=== PATIENT | male | born 2000 | race Caucasian/White ===

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

== ENCOUNTER 2021-10-12 17:12 | Emergency (ER) | payer OTHER, SELFPAY ==
[2021-10-12 19:14] VITALS: BP 124/61; PULSE 88; RESP 18; TEMP 36.7; O2SAT 97; BMI 32.7
[2021-10-12 21:21] VITALS: BP 130/79; PULSE 98; RESP 18; TEMP 36.8; O2SAT 100
--- NOTE | 2021-10-12 21:21 | ED_ITS ---
HPI - Wound/Laceration General Chief Complaint: Wound/Laceration Stated Complaint: Infected Toenail R & L Feet Time Seen by Provider: 10/12/21 21:20 Source: patient Mode of arrival: ambulatory Limitations: no limitations History of Present Illness HPI narrative: 20-year-old male here with ingrown toenails to the bilateral great toes which he has had for months. Patient tells me he called his primary care doctor was referred into the emergency room for further evaluation. Patient has not been on antibiotics he has not been doing Epson salt soaks at home. Patient also reports he would like some sutures removed from his left forearm which replaced in November of 2020. He tells me at that time he had a laceration requiring 3 sutures placed. He did not follow up with his primary care for removal Related Data Previous Rx's Medication Instructions Recorded cephalexin 500 mg capsule 500 mg PO BID #14 caps 10/12/21 Allergies Allergy/AdvReac Type Severity Reaction Status Date / Time No Known Allergies Allergy Verified 10/12/21 19:18 Review of Systems Review of Systems: Yes all other systems are reviewed and are negative Constitutional: Constitutional: Reports no additional constitutional complaints, Denies body ache(s), Denies chills, Denies fever(s), Denies headache(s) and Denies weakness Eyes: Eyes: Reports no additional eye complaints and Denies change in vision ENT: Reports system reviewed and no additional complaints, except as documented, Denies dizziness, Denies headache(s), Denies nasal congestion, Denies nasal discharge and Denies neck pain Cardiovascular: Cardiovascular: Reports no additional cardiovascular compl aints, Denies chest pain, Denies leg edema and Denies dyspnea Respiratory: Respiratory: Reports no additional respiratory complaints, Denies cough and Denies dyspnea Gastrointestinal: Gastrointestinal: Reports no additional gastrointestinal complaints, Denies abdominal pain, Denies diarrhea, Denies nausea and Denies vomiting Genitourinary: Genitourinary: Denies urinary incontinence Musculoskeletal: Musculoskeletal: Reports no additional musculoskeletal complaints, Denies back pain, Denies arthralgias, Denies joint swelling, Denies neck pain, Denies numbness and Denies tingling Integumentary/Breasts: Skin/Breast: Reports system reviewed and no additional complaints, except as docu, Reports swelling, Reports erythema and Denies rash Neurologic: Reports system reviewed and no additional complaints, except as documented, Denies Abnormal speech present, Denies dizziness, Denies headache(s), Denies numbness, Denies tingling and Denies weakness PMFSH Past Medical History Attestation statement: The following information was validated with the patient. Source: old records reviewed and nursing notes reviewed Social History Social History Advance Directives: No Advance Directives Information Provided: No Physical Exam Vital Signs: Vital Signs: Last Vital Signs Temp 98.2 F 10/12/21 21:21 Pulse 98 10/12/21 21:21 Resp 18 10/12/21 21:21 BP 130/79 10/12/21 21:21 Pulse Ox 100 10/12/21 21:21 O2 Del Method 10/12/21 21:21 BMI result Body Mass Index 32.7 Const: General: cooperative, healthy appearing, comfortable and no acute distress Orientation/consciousness: patient oriented x3 Limitations: no limitations HEENT: Head: Yes normal to inspection Ears: hearing grossly normal bilaterally General nose exam: Normal external nose present Face and sinus: Yes normal facial exam Mouth: Normal oral and palatal mucosa present Throat: Yes posterior oropharynx normal Eyes: General: appearance normal, both eyes and all related structures Pupils: Equal, round and reactive pupils present Neck: Neck: Yes normal visual inspection Chest: Chest palpation & inspection: normal inspection of the chest Resp: Effort & Inspection: normal respiratory effort Auscultation: clear to auscultation bilaterally Cardio: Rate: regular rate Rhythm: regular rhythm Peripheral pulses: Peripheral pulses 2+ throughout GI: Inspection: Yes normal to inspection Palpation (GI): Soft to palpation and nontender Auscultation: normal bowel sounds Back/Spine/Pelvis: Thoracic/Lumbar Spine: thoracic and lumbar spine normal to inspection Skin: General skin exam: no rashes or lesions noted Neuro: General: patient oriented x3, no focal motor deficits and normal sensation to monofilament Cranial nerves: Yes Equal, round and reactive pupils present Cognition (Neuro): normal cognition Speech: No Abnormal speech present Gait exam (Neuro): Normal gait present Motor exam (neuro): 5/5 motor strength present throughout Extrem: General: Yes normal to inspection Elbow/forearm/wrist images: 1. 1 suture present. Unable to visualize additional sutures Ankle/foot/toe images: 1. ingrown with local erythema, tenderness, swelling over lateral nailbed 2. ingrown with local swelling. no erythema or tenderness Course Course Course Narrative: see procedure note. Patient placed on antibiotics and recommended to do Epson salt soaks and follow-up with his primary care doctor. This has been a recurrent problem with him so we did discuss that he should ask for podiatry r ji. MDM - Wound/Laceration MDM Narrative Medical decision making narrative: 20-year-old male here with bilateral ingrown toenails. Also requesting suture removal from a left forearm laceration that replaced in November of 2020. Medical Records Attestation: I reviewed the patient's medical records. Lab Data Attestation: I reviewed the patient's lab results. Procedures Procedure Narrative Procedure Narrative: One sutures removed from left forearm. The site was cleansed of Betadine topical dressing was applied the right great toe had a small ingrown toenail on the medial aspect that was removed manually after cleansing the site with Betadine. Left great toe had a ingrown toenail with local redness, swelling and tenderness and the nail was partially excised with removal of the ingrown toenail after digital block was done. The site was cleansed with Betadine prior and postprocedure. 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
[2021-10-12] MEDS: Lidocaine HCl 1 % MPF 2 ML VIAL INFILTRATI ×3 (22:33)
--- NOTE | 2021-10-12 22:42 | PC.NURSE ---
pat's mother at bedside at time of discharge. discharge packet provided to patient. patient verbalized understanding of discharge plan
== END 2021-10-12 22:43 | disposition home or self-care (01) ==
PROVIDERS: Emergency Provider Internal Medicine; PCP Internal Medicine
DX: Z48.02 Encounter for removal of sutures (principal)
CPT/HCPCS: 99283; 99284

== ENCOUNTER 2022-02-26 21:22 | Emergency (ER) | payer OTHER, SELFPAY ==
[2022-02-26 21:31] VITALS: BP 120/77; BP 135/63; PULSE 79; PULSE 98; RESP 16; TEMP 36.6; O2SAT 100; O2SAT 99; BMI 32.8
[2022-02-26 22:31] LABS: COVID-19 Test Negative (Negative); IDNOW Serial# 6674DD1D
[2022-02-26 22:35] LABS: IDNOW Serial# 55D5AD1C; Influenza A Negative (Negative); Influenza B2 Negative (Negative)
--- NOTE | 2022-02-26 23:16 | ED_ITS ---
HPI - Extremity Problem General Chief complaint: Extremity Problem Stated complaint: ingrown Toe Nail Time Seen by Provider: 02/26/22 23:05 Source: patient Mode of arrival: ambulatory Limitations: no limitations History of Present Illness HPI Narrative: 21-year-old male presents via EMS for bilateral ingrown toenails. Complaint: extremity pain Onset (ago): week(s) Pain Consistency: constant Location: left and right Severity scale (1-10): 10 Quality: aching Radiation: none Relieving factors: nothing Exacerbating factors: weight bearing, walking and palpation Associated symptoms: denies other symptoms Context: recent travel Related Data Previous Rx's Medication Instructions Recorded cephalexin 500 mg capsule 500 mg PO BID #14 caps 10/12/21 amoxicillin 875 mg-potassium 1 tab PO Q12H 10 days #20 tabs 02/27/22 clavulanate 125 mg tablet Allergies Allergy/AdvReac Type Severity Reaction Status Date / Time No Known Allergies Allergy Verified 02/26/22 21:36 Review of Systems Review of Systems: Constitutional: No Fever, No Chills Cardiovascular: No Chest Pain, No SOB Respiratory: No Cough, No Dyspnea Gastrointestinal: No Nausea, No Vomiting, No Diarrhea, No abdominal Pain Musculoskeletal: positive bilateral great toe pain, No Myalgias, No Joint Swelling Skin: No Skin lacerations, No rash Neuro: No Weakness, No Numbness, No Paresthesias Yes all other systems are reviewed and are negative [facility] Past Medical History Attestation statement: The following information was validated with the patient. Source: old records reviewed Social History Social History Advance Directives: No Advance Directives Information Provided: No Physical Exam Vital Signs: Vital Signs: Last Vital Signs Temp 98.6 F 02/27/22 00:02 Pulse 73 02/27/22 00:02 Resp 16 02/27/22 00:02 BP 144/75 H 02/27/22 00:02 Pulse Ox 97 02/27/22 00:02 O2 Del Method 02/27/22 00:02 BMI result Body Mass Index 32.8 Appearance: Alert. Oriented X3. No acute distress. Eyes: Pupils equal, round and reactive to light. Neck: Normal inspection. Neck supple. CVS: Normal heart rate and rhythm. Pulses normal. Respiratory: No respiratory distress. Breath sounds normal. Skin: Skin warm and dry. Normal skin color. Normal skin turgor. Extremities: Bilateral ingrown great toenails Neuro: No motor deficit. No sensory deficit. Cranial nerves 2-12 intact Course Course Course Narrative: 21-year-old male presents via EMS for bilateral ingrown toenails. Patient is visiting from [place], and is returning in 2 days. States that he has been taking antibiotics with his toenails however things have worsened. He was post follow-up with a religious education teacher to have the toenails removed however he missed his appointment. Right great toenail is ingrown on the medial aspect, left great toenail is ingrown bilaterally. Plan of care is partial removal of the right great toenail, and full removal of the left great toe nail. Patient verbalized understanding of and agrees to plan of care. Patient tolerated procedure well. Digital blocks to both great toes successful. Xeroform dressing placed. Patient understands signs symptoms indicating infection, and wound care. Patient will follow-up with the religious education teacher once he returns to [place] in 2 days. Patient verbalized understanding of and agrees to plan of care discharge home. Verbalizes understanding of signs and symptoms indicating need for emergent intervention. Medications Administered Discontinued Medications Generic Name Dose Route Start Last Admin Trade Name Freq PRN Reason Stop Dose Admin Amoxicillin/Clavulanate Potassium 875 mg 02/27/22 00:11 02/27/22 00:38 Amoxicillin/Potassium Clav 875 Mg Tablet PO 02/27/22 00:12 875 mg ONCE ONE Administration Diphtheria/Tetanus/Acell Pertussis 0.5 ml 02/26/22 23:16 02/27/22 00:00 Diphth,Pertus(Acell),Tet Adult 0.5 Ml Syringe IM 02/26/22 23:17 0.5 ml .ONCE ONE Administration Lidocaine HCl 10 ml 02/26/22 23:16 02/26/22 23:59 Lidocaine Hcl 2 % Mpf 5 Ml Vial SUBCUT 02/26/22 23:17 10 ml ONCE ONE Administration Medical Decision Making Differential Diagnosis Differential Diagnoses: The differential diagnosis associated with the presentation includes Bilateral ingrown toenails Lab Data MDM Lab Attestation statement: I reviewed the patient's lab results. Labs: Lab Results 02/26/22 02/26/22 Range/Units 22:05 22:05 COVID-19 (RASHAAD) Negative (Negative) COVID-19 Clin Com See Note Influenza Type A (ADILENE) Negative (Negative) Influenza Type B (ADILENE) Negative (Negative) Influenza A & B Note See Note Procedures Nerve Block Nerve Block 1: Time out performed: Yes Local Anesthetic: lidocaine 2% Amount of anesthesia used (mL): 5 Side: left Nerve Blocks: digital Procedure Successful: Yes Patient Tolerated Procedure: well and no complications Complications: none Nerve Block 2: Time out performed: Yes Local Anesthetic: lidocaine 2% Amount of anesthesia used (mL): 5 Side: right Nerve Blocks: digital Procedure Successful: Yes Patient Tolerated Procedure: well and no complications Complications: none Discharge Plan Discharge Clinical Impression: Ingrowing left great toenail, Ingrowing right great toenail Patient Disposition: Home, Self-Care Instructions: Ingrown Nail (ED), Nail Removal (ED), Partial Nail Avulsion for Ingrown Nail (DC) Additional Instructions: You were evaluated for bilateral ingrown toenails. We removed the full nail to the left foot, and a partial to the right foot. Please use dressings as directed. Elevate your feet. You can expect bleeding from the site for the next few days. Take Augmentin 875 mg every 12 hours for the next 10 days. Alternate Tylenol 650 mg every 6 hours and Motrin 600 mg every 6 hours as needed for pain and fever management. Consider taking these medications 3 hours apart so you have pain and fever management every 3 hours. Write down what time you take these medications to prevent accidental overdose. You must follow-up with religious education teacher when you return to your hometown in [place]. Thank you for choosing this emergency department for evaluation. Please follow-up with primary care physician as needed. Return to the emergency department for any new, concerning, or worsening symptoms. Prescriptions: New amoxicillin-pot clavulanate 875-125 mg tablet 1 tab PO Q12H 10 Days Qty: 20 0RF No Action cephalexin 500 mg capsule 500 mg PO BID Qty: 14 0RF Interventions: ED Discharge Assessment Last Done: 02/27/22 00:41 Discharge Date/Time: 02/27/22 00:42
[2022-02-26] MEDS: Lidocaine HCl 2 % MPF 5 ML VIAL 10 ML SUBCUT (23:59)
[2022-02-27] MEDS: Diphth,Pertus(ACell),Tet Adult 0.5 ML SYRINGE IM
[2022-02-27 00:02] VITALS: BP 144/75; PULSE 73; RESP 16; TEMP 37; O2SAT 97
[2022-02-27] MEDS: Amoxicillin/Potassium Clav 875 MG TABLET PO (00:38)
== END 2022-02-27 00:42 | disposition home or self-care (01) ==
PROVIDERS: Emergency Provider Emergency Medicine; PCP Internal Medicine
DX: L60.0 Ingrowing nail (principal); Z23 Encounter for immunization
CPT/HCPCS: 11730; 11732; 87502; 87635; 90471; 90715; 99283; 99284

== ENCOUNTER 2022-12-05 19:55 | Emergency (ER) | payer OTHER, SELFPAY ==
--- NOTE | ~2022-12-05 | XR_ITS ---
EXAMINATION: XR KNEE, RIGHT CLINICAL INFORMATION: Knee pain when running. COMPARISON: None available. TECHNIQUE: AP, lateral, and both oblique views of the right knee. FINDINGS: Bony alignment and mineralization are normal. The lateral, medial and patellofemoral joint space compartments are well-maintained. No fracture or dislocation is seen. A benign, sclerotic bone island is seen of the lateral tibial plateau. There is a small joint effusion. No foreign body is seen. XR/XR knee RT 4V IMPRESSION: 1. No right knee fracture, dislocation or unusual degenerative change is seen. 2. There is a small right knee joint effusion.
[2022-12-05 20:03] VITALS: BP 134/66; PULSE 91; RESP 14; TEMP 37.2; O2SAT 96; BMI 25.8
--- NOTE | 2022-12-05 20:13 | ED_ITS ---
HPI - General Adult General Chief complaint: Extremity Injury, Lower Stated complaint: Pain in right knee Time Seen by Provider: 12/05/22 21:31 Source: patient and RN notes reviewed Mode of arrival: ambulatory Limitations: no limitations History of Present Illness HPI narrative: This is a 22-year-old male, with no known past medical history, presenting to the emergency department today with complaints of right knee pain since yesterday. Patient reports that he has increased his running over the last 2 weeks and states that while he was jogging yesterday he developed right knee pain. He denies any twisting or falls. He is able to bear weight however reports increased pain with this. Denies any previous injury or trauma to his right knee. Denies any fevers or chills. Denies taking any medications at home to treat his current symptoms. No other complaints or concerns at this time. MD complaint: Right knee pain Onset (ago): day(s) Location: lower extremity Radiation: non-radiation Severity: moderate Quality: aching Pain Consistency: constant Relieving factors: immobilization Exacerbating factors: movement Associated symptoms: denies other symptoms Treatments prior to arrival: none Related Data Previous Rx's Medication Instructions Recorded cephalexin 500 mg capsule 500 mg PO BID #14 caps 10/12/21 amoxicillin 875 mg-potassium 1 tab PO Q12H 10 days #20 tabs 02/27/22 clavulanate 125 mg tablet ibuprofen 600 mg tablet 600 mg PO Q6H PRN pain #30 tabs 12/05/22 Allergies Allergy/AdvReac Type Severity Reaction Status Date / Time No Known Allergies Allergy Verified 02/26/22 21:36 Review of Systems Review of Systems: Yes all other systems are reviewed and are negative [facility] Social History Social History Advance Directives: No Advance Directives Information Provided: No Physical Exam ED Vital Signs: Vital Signs - 24 hr 12/05/22 20:03 Temperature 98.9 F Pulse Rate 91 Respiratory Rate 14 Blood Pressure 134/66 Pulse Oximetry 96 Oxygen Delivery Method Room Air BMI result Body Mass Index 25.8 Const Other: General: Awake, alert, and oriented X3. No acute distress. HEENT: Normal inspection CVS: Normal heart rate and rhythm. Pulses normal. Respiratory: No respiratory distress Skin: Warm, dry, no rashes noted to exposed skin. Normal skin color. Normal skin turgor. Extremities: Right knee: no gross bony deformities, swelling. Patient has tenderness palpation along the right lateral joint line. Full range of motion. Negative anterior posterior drawer test, no pain with varus and valgus strain. Distal sensation circulation intact. No calf tenderness Neuro: Oriented X 3. No motor deficit. No sensory deficit. Course Course Course Narrative: RME: Right knee pain after running. Denies hearing pop in knee. denies blunt trauma or swelling. denies redness. xray ordered. Medical Decision Making Medical Decision Making MDM Narrative: 22-year-old male presenting to the emergency department with complaints of right knee pain after jogging. on arrival, vital signs within normal limits. Patient has tenderness palpation along the right lateral joint line, with full range of motion, negative anterior posterior drawer, no pain with varus and valgus strain. Differential diagnoses include internal derangement of ligament, patellar fracture - less likely, patellar dislocation - unlikely, knee strain, Patellofemoral syndrome. X-ray of the right knee was obtained revealing small right knee joint effusion. I discussed this with patient. Advised R.I.C.E., and given orthopedic referral if symptoms persist. Also given prescription for ibuprofen. Given return precautions, patient understands and agrees with plan. Patient stable for discharge. Differential Diagnosis Differential Diagnoses: The differential diagnosis associated with the presenta tion includes See above Independent Interpretation I performed an independent interpretation of an: Plain X-Ray Interpretation: EXAMINATION: XR KNEE, RIGHT CLINICAL INFORMATION: Knee pain when running. COMPARISON: None available. TECHNIQUE: AP, lateral, and both oblique views of the right knee. FINDINGS: Bony alignment and mineralization are normal. The lateral, medial and patellofemoral joint space compartments are well-maintained. No fracture or dislocation is seen. A benign, sclerotic bone island is seen of the lateral tibial plateau. There is a small joint effusion. No foreign body is seen. XR/XR knee RT 4V IMPRESSION: 1. No right knee fracture, dislocation or unusual degenerative change is seen. 2. There is a small right knee joint effusion. Dictated By: Murray Maradiaga MD Discharge Plan Discharge Clinical Impression: Knee pain, right Patient Disposition: Home, Self-Care Instructions: Knee Pain (ED) Additional Instructions: You came to the emergency department today for evaluation of right knee pain. Your x-rays did not show any fractures. X-rays only show bones, they do not show any injury to ligaments. Please rest, ice, use Barrie wrap and elevate your right leg. You may take ibuprofen as needed for pain and symptoms. If any new or worsening symptoms occur please return for re-evaluation. You continue to have right knee pain despite resting, icing, using Barrie wrap, you may follow-up with Orthopedics, call to make an appointment. Prescriptions: New ibuprofen 600 mg tablet 600 mg PO Q6H PRN (Reason: pain) Qty: 30 0RF No Action cephalexin 500 mg capsule 500 mg PO BID Qty: 14 0RF amoxicillin-pot clavulanate 875-125 mg tablet 1 tab PO Q12H 10 Days Qty: 20 0RF Referrals: [facility] [Provider Group] Interventions: ED Discharge Assessment Last Done: 12/05/22 22:12 Discharge Date/Time: 12/05/22 22:12
== END 2022-12-05 22:12 | disposition home or self-care (01) ==
PROVIDERS: Emergency Provider Emergency Medicine
DX: M25.561 Pain in right knee (principal); Z79.899 Other long term (current) drug therapy
CPT/HCPCS: 73564; 99282; 99283

== ENCOUNTER 2022-12-15 07:59 | Outpatient (AMB) | payer OTHER, SELFPAY ==
--- NOTE | 2022-12-15 08:01 | MHC.OFFVIS ---
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 Patient reports about to weeks ago pain at the lateral aspect of knee while jogging. States with any jogging after 10-15 minutes he experiences pain. He is going to boot camp on 12/21/22 in [facility]. He denies any locking or giving way. He has gotten fairly good relief from rest over the last few days. Allergies No Known Allergies Allergy (Verified 02/26/22 21:36) Medication List - Last Reconciled 12/15/22 by John Carey MD amoxicillin-pot clavulanate 875-125 mg 1 tab PO Q12H 10 days cephalexin 500 mg PO BID ibuprofen 600 mg PO Q6H PRN PFSH Social History (Updated 12/15/22 @ 08:03 by Brittani White [facility]) Patient Tobacco Use Status: Never used Tobacco Current occupational status: unemployed Physical Exam Vital Signs: BMI result Body Mass Index 25.8 Const Other: Well-nourished well-developed very friendly male awake alert and oriented x3 in no acute distress Extrem Other: Bilateral lower extremity examination shows good capillary refill, no skin lesions noted, normal sensation light touch Right knee examination shows a minimal effusion, no crepitus with range of motion, no joint line tenderness, negative Joe's test, negative Alisa's test, mild tenderness over his iliotibial band Results Reviewed Results Reviewed: X-rays of the patient's right knee show no bony or joint abnormality Assessment & Plan Assessment & Plan (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 Mayers presents with intermittent discomfort along the lateral aspect of his right knee most likely due to iliotibial band syndrome. Activity modifications and stretching exercises were discussed at length with the patient. I also gave him a prescription for a Medrol Dosepak to help with the inflammation. He will follow up with me on an as-needed basis should his symptoms not plateau at an acceptable level over the next few weeks. I spent 22 minutes in reviewing the patient's records and imaging studies, seeing the patient and documenting in the medical record. Medications: New methylprednisolone (Medrol (Branden)) PO PER PKG DIR 21 ea 0RF Coding Level of Care Code New Pt Level 2 (61448) Diagnoses ITB syndrome M76.30
[2022-12-15 08:05] VITALS: BMI 25.8
== END 2022-12-15 08:22 | disposition home or self-care (01) ==
PROVIDERS: Visit Provider Orthopaedic Surgery
DX: M76.30 Iliotibial band syndrome, unspecified leg (principal)
CPT/HCPCS: 99202

== ENCOUNTER → 2022-12-15 07:59 | Outpatient (BNVA) | payer OTHER, SELFPAY | PROVIDERS: Visit Provider Orthopaedic Surgery | DX: M76.31 Iliotibial band syndrome, right leg (principal) | CPT/HCPCS: 99202 ==